=== PATIENT | male | born 1950 | race Caucasian/White ===

== ENCOUNTER 2020-06-26 15:32 | Inpatient (IN) | payer MEDICARE, MEDICAID ==
[2020-06-26] MEDS ORDERED: Dextrose 5% in Water 1,000 ML IV PRN (15:56)
[2020-06-26] MEDS ORDERED: Dextrose 50% Abboject 50 ML SYRINGE SLOW IVP PRN (15:56)
[2020-06-26] MEDS ORDERED: HumaLOG 300 UNITS/3 ML VIAL SC PRN (15:56)
[2020-06-26] MEDS ORDERED: Propofol 500 MG/50 ML VIAL IV PRN (16:01)
[2020-06-26] MEDS: Propofol 1,000 MG/100 ML VIAL IV PRN ×2 (16:57→20:26)
[2020-06-26] MEDS ORDERED: Fentanyl 100 MCG/2 ML VIAL SLOW IVP PRN (16:58)
[2020-06-26] MEDS ORDERED: Azithromycin 500 MG in Sodium Chloride 0.9% 250 ML 250 ML IVPB SCH (18:00)
[2020-06-26] MEDS ORDERED: Piperacillin/Tazobactam 3.375 GM in Sodium Chloride 0.9% 100 ML IVPB SCH (18:30)
[2020-06-26 19:50] LABS: Lactic Acid 2.6 mmol/L (0.5-2.2)
[2020-06-26] MEDS ORDERED: VANCOMYCIN 1.25 GM/250 ML BAG 1.25 GM in Premix Bag 1 BAG IVPB SCH (20:00)
[2020-06-26] MEDS ORDERED: Ventilator Sedation Protocol 1 EACH FS SCH (20:01)
[2020-06-26] MEDS ORDERED: Fentanyl BOLUS 250 ML IVPB PRN (20:30)
[2020-06-26] MEDS ORDERED: Propofol BOLUS 1,000 MG/100 ML VIAL IV PRN (20:30)
[2020-06-26] MEDS ORDERED: Lorazepam 2 MG/ML VIAL SLOW IVP PRN (20:30)
[2020-06-26] MEDS ORDERED: fentaNYL Citrate-0.9 % NaCl/PF 100 ML IVPB SCH (20:30)
[2020-06-26] MEDS ORDERED: DISCONTINUE PREVIOUS NARCOTIC PAIN MEDICATIONS AND BENZODIAZEPINES FS SCH (20:30)
[2020-06-26] MEDS ORDERED: Propofol 1,000 MG/100 ML VIAL IV PRN (20:30)
[2020-06-26] MEDS ORDERED: Famotidine 20 MG TAB PO SCH (21:00)
[2020-06-26 21:08] LABS: Potassium, Urine 87.5 mmol/L; Sodium, Urine Less than 20 mmol/L (Not Available)
[2020-06-26] MEDS: carBAMazepine 200 MG TAB PO SCH (21:16)
[2020-06-26] MEDS: Heparin 5,000 UNITS/ML VIAL SC SCH (21:17)
[2020-06-26 21:21] LABS: Hemoglobin 12.2 g/dL (13.5-17.5); Mean Corpuscular HGB CONC 34.3 g/dL (32.0-36.0); Mean Corpuscular Hemoglobin 31.8 pg (27.0-33.0); Mean Corpuscular Volume 92.7 fl (81.2-95.1); Mean Platelet Volume 9.5 fl (7.4-10.4); Platelet Count 214 10x3/uL (150-450); RBC Distribution Width 14.7 % (11.5-14.5); Red Blood Cell (RBC) Count 3.84 10x6/uL (4.32-5.72); White Blood Cell (WBC) Count 5.2 10x3/uL (3.5-10.5)
[2020-06-26] MEDS: Carbidopa/Levodopa 25-250 mg Tablet PO SCH (21:28)
[2020-06-26 21:35] LABS: Actual Bicarbonate (HCO3a) 17.7 mEq/L (22-28); Base Excess (BEa) -7.9 mEq/L (-2.0 to +3.0); CO2 Tension 36.4 mmHg (35.0-45.0); Calcium, Ionized (arterial) 1.16 mmol/L (1.12-1.30); Carboxyhemoglobin (COHb) 0.2 gm% (0.0-3.0); Hemoglobin (Hb) 12.6 g/dL (14.0-18.0); O2 Tension (PaO2), arterial 80.9 mmHg (> 70.0); Potassium - ABG Lab 4.7 mmol/L (3.70-5.30); Puncture Site RBA; pH, Arterial 7.31 (7.35-7.45)
[2020-06-26 21:39] LABS: ALT (SGPT) 11 U/L (8-55); AST (SGOT) 13 U/L (5-34); Albumin 2.7 g/dL (3.4-4.8); Alkaline Phosphatase 47 U/L (40-110); Anion Gap 15 mmol/L (10-20); BUN (Urea Nitrogen) 34 mg/dL (8.4-25.7); Bilirubin, Total 1.1 mg/dL (0.2-1.2); Calc. Creatinine Clearance 59 mL/min (70-130); Calcium 7.7 mg/dL (7.8-10.44); Carbon Dioxide 18 mmol/L (23-31); Chloride 96 mmol/L (98-107); Glucose 123 mg/dL (83-110); Potassium 4.8 mmol/L (3.5-5.1); Protein, Total 4.7 g/dL (5.8-8.1); Sodium 124 mmol/L (136-145)
[2020-06-26 21:53] LABS: Band 47 % (5-11); Lymphocytes 10 % (21-51); Metamyelocyte 12 % (0-0); Monocytes 9 % (0-10); Myelocyte 4 % (0-0)
[2020-06-26 21:54] LABS: Neutrophil 17 % (42-75)
[2020-06-26 21:55] LABS: Platelet Clumps SLIGHT; Platelet Morphology Comment PLT clumps seen-ADEQ
[2020-06-26] MEDS: Norepinephrine 8 MG/0.9% NS 250 ML IVPB SCH (21:55)
[2020-06-26 21:56] LABS: Anisocytosis SLIGHT = 6-15 cells (100X) (0-5/hpf); Dohle Bodies SLIGHT; Microcytosis SLIGHT = 6-15 cells (100X) (0-5/hpf); Toxic Granulation SLIGHT; Vacuoles SLIGHT
[2020-06-26 21:57] LABS: MDiff Complete? YES; Manual Diff?? YES
[2020-06-27] MEDS: Piperacillin/Tazobactam 3.375 GM in Sodium Chloride 0.9% 100 ML IVPB SCH ×3 (02:31→18:39)
[2020-06-27 03:45] LABS: Lactic Acid 2.2 mmol/L (0.5-2.2)
[2020-06-27 03:48] LABS: Anion Gap 15 mmol/L (10-20); BUN (Urea Nitrogen) 39 mg/dL (8.4-25.7); Calc. Creatinine Clearance 55 mL/min (70-130); Carbon Dioxide 17 mmol/L (23-31); Chloride 97 mmol/L (98-107); Glucose 114 mg/dL (83-110); Potassium 4.8 mmol/L (3.5-5.1); Sodium 124 mmol/L (136-145)
[2020-06-27 03:59] LABS: Hemoglobin 12.3 g/dL (13.5-17.5); Mean Corpuscular HGB CONC 34.1 g/dL (32.0-36.0); Mean Corpuscular Hemoglobin 30.9 pg (27.0-33.0); Mean Corpuscular Volume 90.7 fl (81.2-95.1); Mean Platelet Volume 9.3 fl (7.4-10.4); Platelet Count 212 10x3/uL (150-450); RBC Distribution Width 14.8 % (11.5-14.5); Red Blood Cell (RBC) Count 3.98 10x6/uL (4.32-5.72); White Blood Cell (WBC) Count 7.8 10x3/uL (3.5-10.5)
[2020-06-27 04:16] LABS: Band 42 % (5-11); Lymphocytes 11 % (21-51); Metamyelocyte 18 % (0-0); Monocytes 8 % (0-10); Myelocyte 1 % (0-0); Neutrophil 17 % (42-75); Reactive Lymphocytes 3 % (0-10)
[2020-06-27 04:18] LABS: MDiff Complete? YES; Manual Diff?? YES
[2020-06-27 04:19] LABS: Platelet Clumps SLIGHT; Platelet Morphology Comment PLT clumps seen-ADEQ
[2020-06-27] MEDS: Propofol 1,000 MG/100 ML VIAL IV PRN (07:22)
[2020-06-27] MEDS: Pantoprazole 40 MG VIAL IVP SCH (07:45)
[2020-06-27] MEDS: carBAMazepine 200 MG TAB PO SCH ×2 (07:45→22:20)
[2020-06-27] MEDS: Heparin 5,000 UNITS/ML VIAL SC SCH ×2 (07:45→21:04)
[2020-06-27] MEDS ORDERED: Sodium Chloride 3% 100 ML IVPB SCH (09:00)
[2020-06-27] MEDS: Carbidopa/Levodopa 25-250 mg Tablet PO SCH ×3 (09:16→22:20)
[2020-06-27] MEDS ORDERED: Sodium Bicarbonate 75 MEQ, Admixture Fee 1 EACH in Sodium Chloride 0.45% 1,000 ML IV SCH (10:30)
[2020-06-27 10:56] LABS: Bilirubin Neg (Negative); Blood, Urine 10 (Negative); Clarity Slightly Cloudy (Clear); Glucose, Urine (Dipstick) Normal (Negative); Ketone, Urine 5 mg/dL (Negative); Leukocyte 25 (Negative); Nitrite Negative (Negative); Protein, Urine (Dipstick) 30 mg/dl (Neg-Trace); Specific Gravity, Urine 1.015 (1.002-1.036)
[2020-06-27 10:57] LABS: Actual Bicarbonate (HCO3a) 19.1 mEq/L (22-28); Base Excess (BEa) -5.8 mEq/L (-2.0 to +3.0); CO2 Tension 35.6 mmHg (35.0-45.0); Calcium, Ionized (arterial) 1.14 mmol/L (1.12-1.30); Carboxyhemoglobin (COHb) 0.3 gm% (0.0-3.0); Hemoglobin (Hb) 12.6 g/dL (14.0-18.0); O2 Tension (PaO2), arterial 76.3 mmHg (> 70.0); Puncture Site RRA; pH, Arterial 7.35 (7.35-7.45)
[2020-06-27 11:00] LABS: Urine Culture Reflex No No
[2020-06-27 11:14] LABS: RBC/HPF 0-3 HPF (0-3); WBC/HPF 0-3 HPF (0-3)
[2020-06-27 11:15] LABS: Bacteria/HPF Rare-Few HPF (None Seen); Squamous Epithelial None Seen HPF (0-3)
[2020-06-27] MEDS ORDERED: Dexmedetomidine In 0.9 % NaCl 100 ML IVPB SCH (11:15)
[2020-06-27] MEDS: Norepinephrine 8 MG/0.9% NS 250 ML IVPB SCH (11:48)
[2020-06-27 12:36] LABS: Anion Gap 14 mmol/L (10-20); BUN (Urea Nitrogen) 45 mg/dL (8.4-25.7); Calc. Creatinine Clearance 51 mL/min (70-130); Carbon Dioxide 17 mmol/L (23-31); Chloride 99 mmol/L (98-107); Glucose 115 mg/dL (83-110); Potassium 4.1 mmol/L (3.5-5.1); Sodium 126 mmol/L (136-145)
[2020-06-27 14:07] LABS: Actual Bicarbonate (HCO3a) 17.4 mEq/L (22-28); Base Excess (BEa) -7.6 mEq/L (-2.0 to +3.0); CO2 Tension 33.8 mmHg (35.0-45.0); Calcium, Ionized (arterial) 1.15 mmol/L (1.12-1.30); Carboxyhemoglobin (COHb) 0.9 gm% (0.0-3.0); Hemoglobin (Hb) 12.9 g/dL (14.0-18.0); O2 Tension (PaO2), arterial 86.4 mmHg (> 70.0); Potassium - ABG Lab 3.9 mmol/L (3.70-5.30); Puncture Site RBA; pH, Arterial 7.33 (7.35-7.45)
[2020-06-27 14:58] LABS: Creatinine, Urine 88.09 mg/dL (63-166)
[2020-06-27 14:59] LABS: Protein, Urine Random Quant 59 mg/dL (1-14); Sodium, Urine 26 mmol/L (Not Available)
[2020-06-27] MEDS: Albumin 25% 25 GM/100 ML BOT IVPB SCH ×3 (16:00→20:38)
[2020-06-27 22:56] LABS: Anion Gap 14 mmol/L (10-20); BUN (Urea Nitrogen) 44 mg/dL (8.4-25.7); Calc. Creatinine Clearance 59 mL/min (70-130); Calcium 8.7 mg/dL (7.8-10.44); Carbon Dioxide 20 mmol/L (23-31); Chloride 99 mmol/L (98-107); Glucose 102 mg/dL (83-110); Potassium 3.8 mmol/L (3.5-5.1); Sodium 129 mmol/L (136-145)
[2020-06-28] MEDS: Piperacillin/Tazobactam 3.375 GM in Sodium Chloride 0.9% 100 ML IVPB SCH ×3 (01:40→17:45)
[2020-06-28] MEDS: Albumin 25% 25 GM/100 ML BOT IVPB SCH ×2 (02:23→09:28)
[2020-06-28 03:36] LABS: Hemoglobin 9.9 g/dL (13.5-17.5); Mean Corpuscular HGB CONC 34.1 g/dL (32.0-36.0); Mean Corpuscular Hemoglobin 31.3 pg (27.0-33.0); Mean Corpuscular Volume 91.8 fl (81.2-95.1); Mean Platelet Volume 9.4 fl (7.4-10.4); Platelet Count 137 10x3/uL (150-450); RBC Distribution Width 14.8 % (11.5-14.5); Red Blood Cell (RBC) Count 3.16 10x6/uL (4.32-5.72); White Blood Cell (WBC) Count 4.7 10x3/uL (3.5-10.5)
[2020-06-28 03:47] LABS: Anion Gap 13 mmol/L (10-20); BUN (Urea Nitrogen) 40 mg/dL (8.4-25.7); Calc. Creatinine Clearance 66 mL/min (70-130); Calcium 9.2 mg/dL (7.8-10.44); Carbon Dioxide 20 mmol/L (23-31); Chloride 101 mmol/L (98-107); Glucose 87 mg/dL (83-110); Potassium 3.8 mmol/L (3.5-5.1); Sodium 130 mmol/L (136-145)
[2020-06-28 04:42] LABS: Band 49 % (5-11); Eosinophils 1 % (0-10); Lymphocytes 6 % (21-51); Metamyelocyte 12 % (0-0); Monocytes 9 % (0-10); Myelocyte 2 % (0-0)
[2020-06-28 04:43] LABS: Neutrophil 21 % (42-75)
[2020-06-28 04:45] LABS: Dohle Bodies SLIGHT; MDiff Complete? YES; Manual Diff?? YES; Toxic Granulation SLIGHT; Vacuoles SLIGHT
[2020-06-28 04:46] LABS: Platelet Morphology Comment Appears Adequate
[2020-06-28] MEDS: Pantoprazole 40 MG VIAL IVP SCH (09:28)
[2020-06-28] MEDS: VANCOMYCIN 1.25 GM/250 ML BAG 1.25 GM in Premix Bag 1 BAG IVPB SCH (09:29)
[2020-06-28] MEDS: Heparin 5,000 UNITS/ML VIAL SC SCH ×2 (09:29→20:31)
[2020-06-28] MEDS: Scopolamine 1.5 mg/72 hour Patch TD SCH (09:30)
[2020-06-28] MEDS: carBAMazepine 200 MG TAB PO SCH ×2 (09:30→20:31)
[2020-06-28] MEDS: Aspirin 81 mg Enteric Coated Tablet PO SCH (09:30)
[2020-06-28] MEDS: Carbidopa/Levodopa 25-250 mg Tablet PO SCH ×3 (09:31→20:31)
[2020-06-28 13:03] LABS: Anion Gap 16 mmol/L (10-20); BUN (Urea Nitrogen) 37 mg/dL (8.4-25.7); Calc. Creatinine Clearance 80 mL/min (70-130); Calcium 9.7 mg/dL (7.8-10.44); Carbon Dioxide 21 mmol/L (23-31); Chloride 98 mmol/L (98-107); Glucose 113 mg/dL (83-110); Potassium 3.7 mmol/L (3.5-5.1); Sodium 131 mmol/L (136-145)
[2020-06-28 22:55] LABS: Anion Gap 17 mmol/L (10-20); BUN (Urea Nitrogen) 42 mg/dL (8.4-25.7); Calc. Creatinine Clearance 90 mL/min (70-130); Calcium 9.7 mg/dL (7.8-10.44); Carbon Dioxide 21 mmol/L (23-31); Chloride 99 mmol/L (98-107); Glucose 153 mg/dL (83-110); Potassium 3.7 mmol/L (3.5-5.1); Sodium 133 mmol/L (136-145)
[2020-06-29] MEDS: Piperacillin/Tazobactam 3.375 GM in Sodium Chloride 0.9% 100 ML IVPB SCH ×3 (01:13→17:17)
[2020-06-29] MEDS: VANCOMYCIN 1.25 GM/250 ML BAG 1.25 GM in Premix Bag 1 BAG IVPB SCH (03:48)
[2020-06-29 05:20] LABS: Anion Gap 15 mmol/L (10-20); BUN (Urea Nitrogen) 45 mg/dL (8.4-25.7); Calc. Creatinine Clearance 95 mL/min (70-130); Calcium 9.8 mg/dL (7.8-10.44); Carbon Dioxide 23 mmol/L (23-31); Chloride 99 mmol/L (98-107); Glucose 150 mg/dL (83-110); Potassium 3.6 mmol/L (3.5-5.1); Sodium 133 mmol/L (136-145)
[2020-06-29 05:25] LABS: Hemoglobin 12.4 g/dL (13.5-17.5); Mean Corpuscular HGB CONC 34.5 g/dL (32.0-36.0); Mean Corpuscular Hemoglobin 30.9 pg (27.0-33.0); Mean Corpuscular Volume 89.5 fl (81.2-95.1); Mean Platelet Volume 9.9 fl (7.4-10.4); Platelet Count 196 10x3/uL (150-450); RBC Distribution Width 14.9 % (11.5-14.5); Red Blood Cell (RBC) Count 4.01 10x6/uL (4.32-5.72)
[2020-06-29 06:45] LABS: Band 57 % (5-11); Lymphocytes 5 % (21-51); Monocytes 2 % (0-10); Neutrophil 36 % (42-75)
[2020-06-29 06:46] LABS: Dohle Bodies SLIGHT; Platelet Morphology Comment Appears Adequate
[2020-06-29 06:47] LABS: Toxic Granulation SLIGHT; Vacuoles SLIGHT
[2020-06-29] MEDS ORDERED: Potassium Bicarbonate/Cit Ac 20 MEQ TAB PO SCH (07:45)
[2020-06-29] MEDS: Potassium Chloride 20 MEQ in Premix Bag 1 BAG IVPB SCH ×2 (08:15→09:51)
[2020-06-29] MEDS: Heparin 5,000 UNITS/ML VIAL SC SCH ×2 (08:15→20:35)
[2020-06-29] MEDS: Pantoprazole 40 MG VIAL IVP SCH (08:15)
[2020-06-29] MEDS: Aspirin 81 mg Enteric Coated Tablet PO SCH (08:18)
[2020-06-29] MEDS: carBAMazepine 200 MG TAB PO SCH ×2 (08:19→20:33)
[2020-06-29] MEDS: Carbidopa/Levodopa 25-250 mg Tablet PO SCH ×3 (08:19→20:34)
[2020-06-29] MEDS: hydrALAZINE 20 MG/ML VIAL SLOW IVP PRN ×2 (11:44→23:12)
[2020-06-30] MEDS: Piperacillin/Tazobactam 3.375 GM in Sodium Chloride 0.9% 100 ML IVPB SCH ×3 (01:38→17:16)
[2020-06-30 05:14] LABS: #Monocytes 1.1 10x3/uL (0.0-1.1); #Neutrophils 7.6 10x3/uL (1.5-8.4); %Basophils 0.4 % (0.0-2.0); %Eosinophils 0.2 % (0.0-6.0); %Lymphocytes 9.4 % (18.0-47.0); %Monocytes 11.2 % (0.0-10.0); %Neutrophils 76.2 % (40.0-75.0); Hemoglobin 11.4 g/dL (13.5-17.5); Mean Corpuscular HGB CONC 34.2 g/dL (32.0-36.0); Mean Corpuscular Hemoglobin 31.1 pg (27.0-33.0); Mean Corpuscular Volume 90.7 fl (81.2-95.1); Mean Platelet Volume 9.6 fl (7.4-10.4); Platelet Count 171 10x3/uL (150-450); RBC Distribution Width 14.9 % (11.5-14.5); Red Blood Cell (RBC) Count 3.67 10x6/uL (4.32-5.72)
[2020-06-30] MEDS: hydrALAZINE 20 MG/ML VIAL SLOW IVP PRN ×3 (05:20→17:20)
[2020-06-30 05:36] LABS: Anion Gap 13 mmol/L (10-20); BUN (Urea Nitrogen) 38 mg/dL (8.4-25.7); Calc. Creatinine Clearance 114 mL/min (70-130); Carbon Dioxide 24 mmol/L (23-31); Chloride 104 mmol/L (98-107); Glucose 105 mg/dL (83-110); Magnesium 2.1 mg/dL (1.6-2.6); Potassium 3.3 mmol/L (3.5-5.1); Sodium 138 mmol/L (136-145)
[2020-06-30] MEDS: Potassium Chloride 20 MEQ in Premix Bag 1 BAG IVPB SCH ×4 (07:41→15:11)
[2020-06-30] MEDS: Pantoprazole 40 MG VIAL IVP SCH (08:55)
[2020-06-30] MEDS: Carbidopa/Levodopa 25-250 mg Tablet PO SCH ×3 (08:55→20:58)
[2020-06-30] MEDS: Aspirin 81 mg Enteric Coated Tablet PO SCH (08:55)
[2020-06-30] MEDS: carBAMazepine 200 MG TAB PO SCH ×2 (08:55→20:58)
[2020-06-30] MEDS: Tamsulosin HCl 0.4 MG CAP PO SCH (08:56)
[2020-06-30] MEDS: Heparin 5,000 UNITS/ML VIAL SC SCH ×2 (08:56→21:24)
[2020-06-30] MEDS ORDERED: Hydrochlorothiazide 25 MG TAB PO SCH (09:00)
[2020-06-30] MEDS ORDERED: Sodium Chloride 0.9% 1,000 ML IV SCH (23:30)
[2020-07-01] MEDS: Piperacillin/Tazobactam 3.375 GM in Sodium Chloride 0.9% 100 ML IVPB SCH ×3 (01:09→17:01)
[2020-07-01 05:19] LABS: Hemoglobin 10.6 g/dL (13.5-17.5); Mean Corpuscular HGB CONC 34.2 g/dL (32.0-36.0); Mean Corpuscular Hemoglobin 31.2 pg (27.0-33.0); Mean Corpuscular Volume 91.2 fl (81.2-95.1); Mean Platelet Volume 9.2 fl (7.4-10.4); Platelet Count 130 10x3/uL (150-450); RBC Distribution Width 14.9 % (11.5-14.5); White Blood Cell (WBC) Count 7.1 10x3/uL (3.5-10.5)
[2020-07-01 05:20] LABS: MDiff Complete? YES
[2020-07-01 05:29] LABS: Anion Gap 13 mmol/L (10-20); BUN (Urea Nitrogen) 33 mg/dL (8.4-25.7); Calc. Creatinine Clearance 107 mL/min (70-130); Calcium 9.6 mg/dL (7.8-10.44); Carbon Dioxide 23 mmol/L (23-31); Chloride 108 mmol/L (98-107); Glucose 103 mg/dL (83-110); Magnesium 1.9 mg/dL (1.6-2.6); Potassium 3.3 mmol/L (3.5-5.1); Sodium 141 mmol/L (136-145)
[2020-07-01 05:49] LABS: Band 7 % (5-11); Eosinophils 1 % (0-10); Lymphocytes 21 % (21-51); Metamyelocyte 2 % (0-0); Monocytes 17 % (0-10); Neutrophil 52 % (42-75)
[2020-07-01 05:50] LABS: Toxic Granulation SLIGHT
[2020-07-01 07:18] LABS: Phosphorus 1.9 mg/dL (2.3-4.7)
[2020-07-01] MEDS: carBAMazepine 200 MG TAB PO SCH (08:33)
[2020-07-01] MEDS: Scopolamine 1.5 mg/72 hour Patch TD SCH (08:33)
[2020-07-01] MEDS: Aspirin 81 mg Enteric Coated Tablet PO SCH (08:33)
[2020-07-01] MEDS: Pantoprazole 40 MG VIAL IVP SCH (08:33)
[2020-07-01] MEDS: Heparin 5,000 UNITS/ML VIAL SC SCH ×2 (08:33→20:18)
[2020-07-01] MEDS: Carbidopa/Levodopa 25-250 mg Tablet PO SCH ×2 (08:33→16:57)
[2020-07-01] MEDS: Tamsulosin HCl 0.4 MG CAP PO SCH (08:34)
[2020-07-01] MEDS ORDERED: Potassium Phosphate 30 MMOL in Sodium Chloride 0.9% 250 ML 250 ML IVPB SCH (10:00)
[2020-07-01] MEDS: Dextrose 5%-Lactated Ringers 1,000 ML IV SCH (13:30)
[2020-07-01] MEDS: Fat Emulsion 250 ML IVPB SCH (16:57)
[2020-07-01 16:59] LABS: Cardiac Risk 4.4 (Less than 4.5)
[2020-07-01 17:00] LABS: INR-International Normal Ratio 1.1; PTT 24.7 sec (22.0-33.0); Prothrombin Time 12.2 sec (9.5-12.1)
[2020-07-01] MEDS ORDERED: [UNRECOGNIZED DRUG - OTHER] IV SCH (17:00)
[2020-07-01] MEDS ORDERED: ADMIXTURE FEE IV SCH (17:00)
[2020-07-01] MEDS ORDERED: POTASSIUM PHOSPHATE IV SCH (17:00)
[2020-07-01] MEDS ORDERED: MULTIVITAMINS IV SCH (17:00)
[2020-07-01] MEDS ORDERED: Activase 2 MG VIAL CATH PRN ×2 (19:00→19:04)
[2020-07-01] MEDS ORDERED: Activase 2 MG VIAL CATH SCH ×2 (19:00→19:15)
[2020-07-02] MEDS: carBAMazepine 200 MG TAB PO SCH ×3 (00:02→22:52)
[2020-07-02] MEDS: Carbidopa/Levodopa 25-250 mg Tablet PO SCH ×4 (00:02→22:53)
[2020-07-02] MEDS: hydrALAZINE 20 MG/ML VIAL SLOW IVP PRN ×2 (00:06→23:26)
[2020-07-02] MEDS ORDERED: Morphine 4 MG/ML VIAL SLOW IVP SCH (01:45)
[2020-07-02] MEDS: Piperacillin/Tazobactam 3.375 GM in Sodium Chloride 0.9% 100 ML IVPB SCH ×3 (02:00→17:39)
[2020-07-02] MEDS: Dextrose 5%-Lactated Ringers 1,000 ML IV SCH (02:05)
[2020-07-02 05:57] LABS: Anion Gap 10 mmol/L (10-20); Globulin 1.8 g/dL (2.4-3.5)
[2020-07-02 06:04] LABS: Hemoglobin 9.5 g/dL (13.5-17.5); Mean Corpuscular HGB CONC 33.8 g/dL (32.0-36.0); Mean Corpuscular Hemoglobin 31.5 pg (27.0-33.0); Mean Platelet Volume 10.1 fl (7.4-10.4); Platelet Count 114 10x3/uL (150-450); RBC Distribution Width 14.7 % (11.5-14.5); Red Blood Cell (RBC) Count 3.02 10x6/uL (4.32-5.72); White Blood Cell (WBC) Count 8.3 10x3/uL (3.5-10.5)
[2020-07-02 06:07] LABS: Band 2 % (5-11); Eosinophils 3 % (0-10); Lymphocytes 13 % (21-51); Metamyelocyte 3 % (0-0); Monocytes 10 % (0-10); Myelocyte 1 % (0-0); Nucleated RBC 1 % (0); Reactive Lymphocytes 2 % (0-10)
[2020-07-02 06:10] LABS: Platelet Morphology Comment Appears Decreased
[2020-07-02 06:13] LABS: MDiff Complete? YES
[2020-07-02 06:14] LABS: ALT (SGPT) 20 U/L (8-55); AST (SGOT) 25 U/L (5-34); Albumin 3.1 g/dL (3.4-4.8); Alkaline Phosphatase 43 U/L (40-110); BUN (Urea Nitrogen) 28 mg/dL (8.4-25.7); Bilirubin, Total 1.9 mg/dL (0.2-1.2); Calc. Creatinine Clearance 108 mL/min (70-130); Calcium 8.6 mg/dL (7.8-10.44); Carbon Dioxide 25 mmol/L (23-31); Chloride 112 mmol/L (98-107); Glucose 153 mg/dL (83-110); Magnesium 1.9 mg/dL (1.6-2.6); Phosphorus 2.7 mg/dL (2.3-4.7); Protein, Total 4.9 g/dL (5.8-8.1); Sodium 144 mmol/L (136-145)
[2020-07-02 06:15] LABS: Neutrophil 66 % (42-75)
[2020-07-02] MEDS ORDERED: Dextrose 5%-Lactated Ringers 1,000 ML IV SCH (08:20)
[2020-07-02] MEDS: Pantoprazole 40 MG VIAL IVP SCH (08:34)
[2020-07-02] MEDS: Heparin 5,000 UNITS/ML VIAL SC SCH ×2 (08:34→22:53)
[2020-07-02] MEDS: Tamsulosin HCl 0.4 MG CAP PO SCH (08:35)
[2020-07-02] MEDS: Aspirin 81 mg Enteric Coated Tablet PO SCH (08:35)
[2020-07-02] MEDS: Potassium Chloride 20 MEQ in Premix Bag 1 BAG IVPB SCH ×2 (08:40→08:41)
[2020-07-02] MEDS: Morphine 2 MG/ML VIAL SLOW IVP PRN ×2 (15:32→22:53)
[2020-07-02] MEDS: POTASSIUM PHOSPHATE IV SCH (17:39)
[2020-07-02] MEDS: [UNRECOGNIZED DRUG - OTHER] IV SCH (17:39)
[2020-07-02] MEDS: ADMIXTURE FEE IV SCH (17:39)
[2020-07-02] MEDS: MULTIVITAMINS IV SCH (17:39)
[2020-07-02] MEDS: Fat Emulsion 250 ML IVPB SCH (18:07)
[2020-07-03] MEDS: Piperacillin/Tazobactam 3.375 GM in Sodium Chloride 0.9% 100 ML IVPB SCH ×3 (03:20→16:47)
[2020-07-03 05:20] LABS: Hemoglobin 10.3 g/dL (13.5-17.5); Mean Corpuscular HGB CONC 34.1 g/dL (32.0-36.0); Mean Corpuscular Hemoglobin 31.8 pg (27.0-33.0); Mean Corpuscular Volume 93.2 fl (81.2-95.1); Mean Platelet Volume 10.6 fl (7.4-10.4); Platelet Count 143 10x3/uL (150-450); RBC Distribution Width 14.6 % (11.5-14.5); Red Blood Cell (RBC) Count 3.24 10x6/uL (4.32-5.72); White Blood Cell (WBC) Count 11.1 10x3/uL (3.5-10.5)
[2020-07-03 05:21] LABS: MDiff Complete? YES
[2020-07-03 05:31] LABS: ALT (SGPT) 19 U/L (8-55); AST (SGOT) 51 U/L (5-34); Albumin 3.4 g/dL (3.4-4.8); Alkaline Phosphatase 60 U/L (40-110); Anion Gap 12 mmol/L (10-20); BUN (Urea Nitrogen) 19 mg/dL (8.4-25.7); Bilirubin, Total 1.9 mg/dL (0.2-1.2); Calc. Creatinine Clearance 118 mL/min (70-130); Calcium 8.9 mg/dL (7.8-10.44); Carbon Dioxide 22 mmol/L (23-31); Chloride 112 mmol/L (98-107); Globulin 2.2 g/dL (2.4-3.5); Glucose 111 mg/dL (83-110); Phosphorus 2.9 mg/dL (2.3-4.7); Potassium 3.6 mmol/L (3.5-5.1); Protein, Total 5.6 g/dL (5.8-8.1); Sodium 142 mmol/L (136-145)
[2020-07-03 05:37] LABS: Band 12 % (5-11); Eosinophils 1 % (0-10); Lymphocytes 12 % (21-51); Metamyelocyte 1 % (0-0); Monocytes 9 % (0-10); Myelocyte 1 % (0-0); Neutrophil 59 % (42-75); Reactive Lymphocytes 5 % (0-10)
[2020-07-03 05:39] LABS: Toxic Granulation MODERATE
[2020-07-03] MEDS: Metoprolol Tartrate 5 MG/5 ML VIAL IVP SCH ×2 (07:08→07:09)
[2020-07-03] MEDS ORDERED: Furosemide 20 MG/2 ML VIAL SLOW IVP SCH (07:15)
[2020-07-03] MEDS ORDERED: guaiFENesin 100 MG/5 ML UDCUP PO PRN (07:34)
[2020-07-03] MEDS ORDERED: FLUPHENAZINE DECANOATE 25 MG/ML IM SCH (07:45)
[2020-07-03] MEDS: Gabapentin 300 MG CAP PO SCH ×3 (08:37→22:16)
[2020-07-03] MEDS: DULoxetine 30 MG CAP PO SCH (08:37)
[2020-07-03] MEDS: Heparin 5,000 UNITS/ML VIAL SC SCH ×2 (08:37→22:17)
[2020-07-03] MEDS: Pantoprazole 40 MG VIAL IVP SCH (08:37)
[2020-07-03] MEDS: Carbidopa/Levodopa 25-250 mg Tablet PO SCH ×3 (08:38→22:17)
[2020-07-03] MEDS: Aspirin 81 mg Enteric Coated Tablet PO SCH (08:38)
[2020-07-03] MEDS: Tamsulosin HCl 0.4 MG CAP PO SCH (08:38)
[2020-07-03] MEDS: carBAMazepine 200 MG TAB PO SCH ×2 (08:38→22:16)
[2020-07-03] MEDS: Potassium Bicarbonate/Cit Ac 20 MEQ TAB PO SCH ×3 (09:13→22:16)
[2020-07-03] MEDS: Fat Emulsion 250 ML IVPB SCH (16:47)
[2020-07-03] MEDS: POTASSIUM PHOSPHATE IV SCH (16:47)
[2020-07-03] MEDS: ADMIXTURE FEE IV SCH (16:47)
[2020-07-03] MEDS: [UNRECOGNIZED DRUG - OTHER] IV SCH (16:47)
[2020-07-03] MEDS: MULTIVITAMINS IV SCH (16:47)
[2020-07-04] MEDS: Piperacillin/Tazobactam 3.375 GM in Sodium Chloride 0.9% 100 ML IVPB SCH ×3 (02:05→18:13)
[2020-07-04 07:21] LABS: Anion Gap 13 mmol/L (10-20); Globulin 2.2 g/dL (2.4-3.5)
[2020-07-04 07:29] LABS: ALT (SGPT) 17 U/L (8-55); AST (SGOT) 20 U/L (5-34); Albumin 3.2 g/dL (3.4-4.8); Alkaline Phosphatase 47 U/L (40-110); BUN (Urea Nitrogen) 19 mg/dL (8.4-25.7); Bilirubin, Total 1.1 mg/dL (0.2-1.2); Calc. Creatinine Clearance 107 mL/min (70-130); Calcium 8.6 mg/dL (7.8-10.44); Carbon Dioxide 26 mmol/L (23-31); Chloride 106 mmol/L (98-107); Glucose 133 mg/dL (83-110); Magnesium 2.3 mg/dL (1.6-2.6); Phosphorus 3.6 mg/dL (2.3-4.7); Potassium 3.5 mmol/L (3.5-5.1); Protein, Total 5.4 g/dL (5.8-8.1); Sodium 141 mmol/L (136-145)
[2020-07-04] MEDS: Aspirin 81 mg Enteric Coated Tablet PO SCH (09:36)
[2020-07-04] MEDS: Gabapentin 300 MG CAP PO SCH ×3 (09:36→20:44)
[2020-07-04] MEDS: carBAMazepine 200 MG TAB PO SCH ×2 (09:36→20:44)
[2020-07-04] MEDS: DULoxetine 30 MG CAP PO SCH (09:36)
[2020-07-04] MEDS: Carbidopa/Levodopa 25-250 mg Tablet PO SCH ×3 (09:36→20:44)
[2020-07-04] MEDS: Amlodipine 5 MG TAB PO SCH (09:37)
[2020-07-04] MEDS: Pantoprazole 40 MG VIAL IVP SCH (09:37)
[2020-07-04] MEDS: Potassium Bicarbonate/Cit Ac 20 MEQ TAB PO SCH ×3 (09:37→21:15)
[2020-07-04] MEDS: Heparin 5,000 UNITS/ML VIAL SC SCH ×2 (09:37→20:44)
[2020-07-04] MEDS: Scopolamine 1.5 mg/72 hour Patch TD SCH (09:38)
[2020-07-04] MEDS: Tamsulosin HCl 0.4 MG CAP PO SCH (09:44)
[2020-07-04] MEDS: Fat Emulsion 250 ML IVPB SCH (16:03)
[2020-07-04] MEDS ORDERED: MULTIVITAMINS IV SCH (17:00)
[2020-07-04] MEDS ORDERED: TRACE ELEMENTS IV SCH (17:00)
[2020-07-04] MEDS ORDERED: [UNRECOGNIZED DRUG - OTHER] IV SCH (17:00)
[2020-07-04] MEDS ORDERED: FOLIC ACID IV SCH (17:00)
[2020-07-04] MEDS ORDERED: Vancomycin HCl 1 GM in Sodium Chloride 0.9% 250 ML 250 ML IVPB SCH (18:00)
[2020-07-05] MEDS: Piperacillin/Tazobactam 3.375 GM in Sodium Chloride 0.9% 100 ML IVPB SCH ×3 (02:52→17:12)
[2020-07-05] MEDS: Morphine 2 MG/ML VIAL SLOW IVP PRN (02:53)
[2020-07-05 05:23] LABS: #Eosinphils 0.3 10x3/uL (0.0-0.5); #Monocytes 0.5 10x3/uL (0.0-1.1); #Neutrophils 4.7 10x3/uL (1.5-8.4); %Basophils 0.6 % (0.0-2.0); %Eosinophils 4.2 % (0.0-6.0); %Lymphocytes 20.1 % (18.0-47.0); %Monocytes 6.7 % (0.0-10.0); %Neutrophils 65.8 % (40.0-75.0); Hemoglobin 8.8 g/dL (13.5-17.5); Mean Corpuscular HGB CONC 32.2 g/dL (32.0-36.0); Mean Corpuscular Hemoglobin 31.3 pg (27.0-33.0); Mean Corpuscular Volume 97.2 fl (81.2-95.1); Mean Platelet Volume 10.5 fl (7.4-10.4); Platelet Count 186 10x3/uL (150-450); RBC Distribution Width 14.6 % (11.5-14.5); Red Blood Cell (RBC) Count 2.81 10x6/uL (4.32-5.72); White Blood Cell (WBC) Count 7.2 10x3/uL (3.5-10.5)
[2020-07-05 05:40] LABS: ALT (SGPT) Less than 6 U/L (8-55); AST (SGOT) 13 U/L (5-34); Albumin 2.7 g/dL (3.4-4.8); Alkaline Phosphatase 45 U/L (40-110); Anion Gap 7 mmol/L (10-20); BUN (Urea Nitrogen) 20 mg/dL (8.4-25.7); Bilirubin, Total 0.7 mg/dL (0.2-1.2); Calc. Creatinine Clearance 117 mL/min (70-130); Calcium 7.9 mg/dL (7.8-10.44); Carbon Dioxide 26 mmol/L (23-31); Chloride 108 mmol/L (98-107); Globulin 2.2 g/dL (2.4-3.5); Glucose 138 mg/dL (83-110); Magnesium 2.1 mg/dL (1.6-2.6); Phosphorus 2.7 mg/dL (2.3-4.7); Potassium 3.7 mmol/L (3.5-5.1); Protein, Total 4.9 g/dL (5.8-8.1); Sodium 137 mmol/L (136-145)
[2020-07-05] MEDS: Vancomycin HCl 750 MG in Sodium Chloride 0.9% 250 ML 250 ML IVPB SCH ×2 (06:05→17:12)
[2020-07-05] MEDS: Amlodipine 5 MG TAB PO SCH (08:32)
[2020-07-05] MEDS: Aspirin 81 mg Enteric Coated Tablet PO SCH (08:32)
[2020-07-05] MEDS: Heparin 5,000 UNITS/ML VIAL SC SCH ×2 (08:33→22:44)
[2020-07-05] MEDS: carBAMazepine 200 MG TAB PO SCH ×2 (08:33→21:15)
[2020-07-05] MEDS: DULoxetine 30 MG CAP PO SCH (08:33)
[2020-07-05] MEDS: Carbidopa/Levodopa 25-250 mg Tablet PO SCH ×3 (08:33→21:15)
[2020-07-05] MEDS: Gabapentin 300 MG CAP PO SCH ×3 (08:33→22:43)
[2020-07-05] MEDS: Potassium Bicarbonate/Cit Ac 20 MEQ TAB PO SCH ×3 (08:33→21:15)
[2020-07-05] MEDS: Tamsulosin HCl 0.4 MG CAP PO SCH (08:33)
[2020-07-05] MEDS: Pantoprazole 40 MG VIAL IVP SCH (08:33)
[2020-07-05] MEDS: Torsemide 20 MG TAB PO SCH (09:55)
[2020-07-05] MEDS: Fat Emulsion 250 ML IVPB SCH (16:09)
[2020-07-05] MEDS ORDERED: MULTIVITAMINS IV SCH (17:00)
[2020-07-05] MEDS ORDERED: [UNRECOGNIZED DRUG - OTHER] IV SCH (17:00)
[2020-07-05] MEDS ORDERED: FOLIC ACID IV SCH (17:00)
[2020-07-05] MEDS ORDERED: TRACE ELEMENTS IV SCH (17:00)
[2020-07-06] MEDS: Piperacillin/Tazobactam 3.375 GM in Sodium Chloride 0.9% 100 ML IVPB SCH ×3 (02:15→18:00)
[2020-07-06] MEDS: Morphine 2 MG/ML VIAL SLOW IVP PRN ×2 (05:15→18:00)
[2020-07-06] MEDS: Vancomycin HCl 750 MG in Sodium Chloride 0.9% 250 ML 250 ML IVPB SCH (05:45)
[2020-07-06 05:46] LABS: #Eosinphils 0.3 10x3/uL (0.0-0.5); #Monocytes 0.7 10x3/uL (0.0-1.1); #Neutrophils 5.9 10x3/uL (1.5-8.4); %Basophils 0.5 % (0.0-2.0); %Eosinophils 3.3 % (0.0-6.0); %Lymphocytes 16.1 % (18.0-47.0); %Monocytes 7.9 % (0.0-10.0); %Neutrophils 70.7 % (40.0-75.0); Hemoglobin 9.5 g/dL (13.5-17.5); Mean Corpuscular Hemoglobin 31.7 pg (27.0-33.0); Mean Platelet Volume 10.7 fl (7.4-10.4); Platelet Count 215 10x3/uL (150-450); RBC Distribution Width 14.5 % (11.5-14.5); White Blood Cell (WBC) Count 8.4 10x3/uL (3.5-10.5)
[2020-07-06 05:58] LABS: Vancomycin, Trough 7.7 ug/mL
[2020-07-06 06:02] LABS: ALT (SGPT) 7 U/L (8-55); AST (SGOT) 11 U/L (5-34); Alkaline Phosphatase 52 U/L (40-110); Anion Gap 12 mmol/L (10-20); BUN (Urea Nitrogen) 18 mg/dL (8.4-25.7); Bilirubin, Total 0.5 mg/dL (0.2-1.2); Calc. Creatinine Clearance 114 mL/min (70-130); Calcium 8.4 mg/dL (7.8-10.44); Carbon Dioxide 25 mmol/L (23-31); Chloride 101 mmol/L (98-107); Globulin 2.2 g/dL (2.4-3.5); Glucose 159 mg/dL (83-110); Magnesium 2.1 mg/dL (1.6-2.6); Phosphorus 2.6 mg/dL (2.3-4.7); Potassium 3.8 mmol/L (3.5-5.1); Protein, Total 5.2 g/dL (5.8-8.1); Sodium 134 mmol/L (136-145)
[2020-07-06] MEDS: Aspirin 81 mg Enteric Coated Tablet PO SCH (11:54)
[2020-07-06] MEDS: Tamsulosin HCl 0.4 MG CAP PO SCH (11:54)
[2020-07-06] MEDS: Gabapentin 300 MG CAP PO SCH ×3 (11:54→21:02)
[2020-07-06] MEDS: Heparin 5,000 UNITS/ML VIAL SC SCH ×2 (11:55→21:00)
[2020-07-06] MEDS: carBAMazepine 200 MG TAB PO SCH ×2 (11:55→21:03)
[2020-07-06] MEDS: Amlodipine 5 MG TAB PO SCH (11:55)
[2020-07-06] MEDS: Carbidopa/Levodopa 25-250 mg Tablet PO SCH ×3 (11:56→21:03)
[2020-07-06] MEDS: Potassium Bicarbonate/Cit Ac 20 MEQ TAB PO SCH ×3 (11:56→21:04)
[2020-07-06] MEDS: Pantoprazole 40 MG VIAL IVP SCH (11:56)
[2020-07-06] MEDS: Torsemide 20 MG TAB PO SCH (11:56)
[2020-07-06] MEDS: DULoxetine 30 MG CAP PO SCH (11:56)
[2020-07-06] MEDS ORDERED: FOLIC ACID IV SCH (17:00)
[2020-07-06] MEDS ORDERED: MULTIVITAMINS IV SCH (17:00)
[2020-07-06] MEDS ORDERED: [UNRECOGNIZED DRUG - OTHER] IV SCH (17:00)
[2020-07-06] MEDS: Fat Emulsion 250 ML IVPB SCH (17:00)
[2020-07-06] MEDS ORDERED: TRACE ELEMENTS IV SCH (17:00)
[2020-07-06] MEDS ORDERED: VANCOMYCIN 1.25 GM/250 ML BAG 1.25 GM in Premix Bag 1 BAG IVPB SCH (18:00)
[2020-07-07] MEDS: Piperacillin/Tazobactam 3.375 GM in Sodium Chloride 0.9% 100 ML IVPB SCH ×2 (01:37→10:21)
[2020-07-07 07:04] LABS: #Eosinphils 0.3 10x3/uL (0.0-0.5); #Monocytes 0.5 10x3/uL (0.0-1.1); #Neutrophils 3.9 10x3/uL (1.5-8.4); %Basophils 0.7 % (0.0-2.0); %Eosinophils 4.3 % (0.0-6.0); %Lymphocytes 21.1 % (18.0-47.0); %Monocytes 7.9 % (0.0-10.0); %Neutrophils 64.4 % (40.0-75.0); Hemoglobin 8.9 g/dL (13.5-17.5); Mean Corpuscular HGB CONC 33.3 g/dL (32.0-36.0); Mean Corpuscular Hemoglobin 32.1 pg (27.0-33.0); Mean Corpuscular Volume 96.4 fl (81.2-95.1); Platelet Count 223 10x3/uL (150-450); RBC Distribution Width 14.5 % (11.5-14.5); Red Blood Cell (RBC) Count 2.77 10x6/uL (4.32-5.72); White Blood Cell (WBC) Count 6.1 10x3/uL (3.5-10.5)
[2020-07-07 07:21] LABS: ALT (SGPT) 6 U/L (8-55); AST (SGOT) 14 U/L (5-34); Albumin 2.8 g/dL (3.4-4.8); Alkaline Phosphatase 51 U/L (40-110); Anion Gap 9 mmol/L (10-20); BUN (Urea Nitrogen) 16 mg/dL (8.4-25.7); Bilirubin, Total 0.5 mg/dL (0.2-1.2); Calc. Creatinine Clearance 109 mL/min (70-130); Calcium 8.3 mg/dL (7.8-10.44); Carbon Dioxide 27 mmol/L (23-31); Chloride 102 mmol/L (98-107); Globulin 2.2 g/dL (2.4-3.5); Glucose 169 mg/dL (83-110); Magnesium 2.1 mg/dL (1.6-2.6); Phosphorus 2.8 mg/dL (2.3-4.7); Potassium 4.1 mmol/L (3.5-5.1); Sodium 134 mmol/L (136-145)
[2020-07-07] MEDS: Scopolamine 1.5 mg/72 hour Patch TD SCH (10:16)
[2020-07-07] MEDS: Aspirin 81 mg Enteric Coated Tablet PO SCH (10:16)
[2020-07-07] MEDS: Pantoprazole 40 MG VIAL IVP SCH (10:16)
[2020-07-07] MEDS: Gabapentin 300 MG CAP PO SCH ×3 (10:16→20:26)
[2020-07-07] MEDS: DULoxetine 30 MG CAP PO SCH (10:16)
[2020-07-07] MEDS: Heparin 5,000 UNITS/ML VIAL SC SCH ×2 (10:16→20:19)
[2020-07-07] MEDS: Amlodipine 5 MG TAB PO SCH (10:17)
[2020-07-07] MEDS: carBAMazepine 200 MG TAB PO SCH ×2 (10:18→20:27)
[2020-07-07] MEDS: Tamsulosin HCl 0.4 MG CAP PO SCH (10:18)
[2020-07-07] MEDS: Carbidopa/Levodopa 25-250 mg Tablet PO SCH ×3 (10:18→20:26)
[2020-07-07] MEDS: Torsemide 20 MG TAB PO SCH (10:21)
[2020-07-07] MEDS: Potassium Bicarbonate/Cit Ac 20 MEQ TAB PO SCH ×3 (10:21→20:27)
[2020-07-08] MEDS: Acetaminophen 325 MG TAB PO PRN ×2 (00:49→17:14)
[2020-07-08 05:42] LABS: INR-International Normal Ratio 1.1; PTT 24.8 sec (22.0-33.0); Prothrombin Time 11.6 sec (9.5-12.1)
[2020-07-08 06:03] LABS: ALT (SGPT) 12 U/L (8-55); AST (SGOT) 14 U/L (5-34); Alkaline Phosphatase 60 U/L (40-110); Anion Gap 10 mmol/L (10-20); BUN (Urea Nitrogen) 17 mg/dL (8.4-25.7); Bilirubin, Total 0.5 mg/dL (0.2-1.2); Calc. Creatinine Clearance 103 mL/min (70-130); Carbon Dioxide 29 mmol/L (23-31); Cardiac Risk 4.4 (Less than 4.5); Chloride 101 mmol/L (98-107); Cholesterol 70 mg/dl (< 200 Desired); Globulin 2.6 g/dL (2.4-3.5); Glucose 97 mg/dL (83-110); HDL Cholesterol 16 mg/dL (>60 Neg Risk); LDL Cholesterol, Calculated 35 mg/dL; Phosphorus 3.4 mg/dL (2.3-4.7); Potassium 4.3 mmol/L (3.5-5.1); Protein, Total 5.6 g/dL (5.8-8.1); Sodium 136 mmol/L (136-145); Triglycerides 94 mg/dL (Less than 150)
[2020-07-08] MEDS ORDERED: Pantoprazole 40 MG VIAL ONE (09:36)
[2020-07-08] MEDS: Potassium Bicarbonate/Cit Ac 20 MEQ TAB PO SCH ×3 (09:49→20:24)
[2020-07-08] MEDS: Pantoprazole 40 MG VIAL IVP SCH (09:49)
[2020-07-08] MEDS: carBAMazepine 200 MG TAB PO SCH ×2 (09:49→20:21)
[2020-07-08] MEDS: Heparin 5,000 UNITS/ML VIAL SC SCH ×2 (09:49→20:20)
[2020-07-08] MEDS: Amlodipine 5 MG TAB PO SCH (09:50)
[2020-07-08] MEDS: Gabapentin 300 MG CAP PO SCH ×3 (09:50→20:19)
[2020-07-08] MEDS: Carbidopa/Levodopa 25-250 mg Tablet PO SCH ×3 (09:50→20:20)
[2020-07-08] MEDS: Tamsulosin HCl 0.4 MG CAP PO SCH (09:50)
[2020-07-08] MEDS: Torsemide 20 MG TAB PO SCH (09:51)
[2020-07-08] MEDS: Aspirin 81 mg Enteric Coated Tablet PO SCH (09:51)
[2020-07-08] MEDS: DULoxetine 30 MG CAP PO SCH (09:51)
[2020-07-08] MEDS ORDERED: Tamsulosin HCl 0.4 MG CAP PO SCH (19:30)
[2020-07-09 06:55] LABS: Albumin 3.2 g/dL (3.4-4.8); Anion Gap 13 mmol/L (10-20); BUN (Urea Nitrogen) 17 mg/dL (8.4-25.7); BUN/Creatinine Ratio 21.79; Calc. Creatinine Clearance 99 mL/min (70-130); Calcium 9.4 mg/dL (7.8-10.44); Carbon Dioxide 28 mmol/L (23-31); Chloride 100 mmol/L (98-107); Glucose 115 mg/dL (83-110); Phosphorus 3.9 mg/dL (2.3-4.7); Potassium 4.6 mmol/L (3.5-5.1); Sodium 136 mmol/L (136-145)
[2020-07-09 07:09] VITALS: BMI 262104.6
[2020-07-09] MEDS: Acetaminophen 325 MG TAB PO PRN (09:45)
[2020-07-09] MEDS: DULoxetine 30 MG CAP PO SCH (09:46)
[2020-07-09] MEDS: Gabapentin 300 MG CAP PO SCH (09:46)
[2020-07-09] MEDS: Aspirin 81 mg Enteric Coated Tablet PO SCH (09:46)
[2020-07-09] MEDS: carBAMazepine 200 MG TAB PO SCH (09:46)
[2020-07-09] MEDS: Tamsulosin HCl 0.4 MG CAP PO SCH (09:46)
[2020-07-09] MEDS: Carbidopa/Levodopa 25-250 mg Tablet PO SCH (09:47)
[2020-07-09] MEDS: Heparin 5,000 UNITS/ML VIAL SC SCH (09:49)
[2020-07-09] MEDS: Pantoprazole 40 MG VIAL IVP SCH (09:49)
[2020-07-09] MEDS: Potassium Bicarbonate/Cit Ac 20 MEQ TAB PO SCH (09:50)
[2020-07-09] MEDS: Torsemide 20 MG TAB PO SCH (09:51)
[2020-07-09 11:59] VITALS: BP 130/78; TEMP 98.2
== END 2020-07-09 12:00 | DRG 871 ==
LOC: CSHICU 15:32 → CSHTELE 06-29 16:18
PROVIDERS: ADMIT Family Medicine; ATTEND Family Medicine
PROC: 3E033XZ Introduction of Vasopressor into Peripheral Vein, Percutaneous Approach (ICD-10-PCS; principal; 2020-06-26)
PROC: 5A1935Z Respiratory Ventilation, Less than 24 Consecutive Hours (ICD-10-PCS; 2020-06-26)
DX: A41.9 Sepsis, unspecified organism (principal); R65.21 Severe sepsis with septic shock; G93.41 Metabolic encephalopathy; J69.0 Pneumonitis due to inhalation of food and vomit; J96.02 Acute respiratory failure with hypercapnia; J96.01 Acute respiratory failure with hypoxia; N17.9 Acute kidney failure, unspecified; E87.2 Acidosis; E22.2 Syndrome of inappropriate secretion of antidiuretic hormone; D62 Acute posthemorrhagic anemia; I13.0 Hypertensive heart and chronic kidney disease with heart failure and stage 1 through stage 4 chronic kidney disease, or unspecified chronic kidney disease; I50.30 Unspecified diastolic (congestive) heart failure; G20 Parkinson's disease; K21.9 Gastro-esophageal reflux disease without esophagitis; K59.09 Other constipation; I12.9 Hypertensive chronic kidney disease with stage 1 through stage 4 chronic kidney disease, or unspecified chronic kidney disease; N18.2 Chronic kidney disease, stage 2 (mild); B19.20 Unspecified viral hepatitis C without hepatic coma; E83.51 Hypocalcemia; E86.9 Volume depletion, unspecified; R13.12 Dysphagia, oropharyngeal phase; E87.6 Hypokalemia; E83.39 Other disorders of phosphorus metabolism; F15.10 Other stimulant abuse, uncomplicated; N40.1 Benign prostatic hyperplasia with lower urinary tract symptoms; R33.8 Other retention of urine; Z88.1 Allergy status to other antibiotic agents; Z79.82 Long term (current) use of aspirin; Z79.899 Other long term (current) drug therapy
CPT/HCPCS: 0240U; 36415; 36416; 36556; 36600; 51702; 71045; 74018; 74230; 80048; 80053; 80061; 80069; 80202; 80306; 80307; 81001; 81003; 81015; 82570; 82805; 83605; 83735; 83880; 83930; 83935; 84100; 84133; 84134; 84145; 84156; 84300; 84484; 84540; 85025; 85610; 85730; 86140; 87040; 87086; 87149; 93005; 93306; 94002; 94003; 94640; 94760; 96365; 96366; 96368; 96374; 96375; 99292; C9113; J0360; J0456; J1644; J1940; J1956; J2060; J2250; J2270; J2543; J2704; J2997; J3010; J3370; J3475; J3480; J3490; J7050; J7131; J7620; P9047